=== PATIENT | male | born 1995 | race American Indian/Alaskan Native ===

== ENCOUNTER 2016-07-24 06:57 | Emergency (ER) | payer SELFPAY ==
[2016-07-24 07:24] VITALS: BP 158/101
--- NOTE | 2016-07-24 07:34 | Emergency Department Report ---
HPI - General Chief Complaint: Upper Respiratory Infection Time Seen by Provider: 07/24/16 07:28 - HPI HPI: Patient here complaining of body aches, cough, chills headache nausea and vomiting and diarrhea. Blood pressure is 158/101 and he denies any history of high blood pressure. He said he is having generalized bodyaches at 7 out of 10. Reports been ongoing for the last week and a half and is taking over-the- counter sinus medicine without any relief. Patient has a history of asthma. Denies any nausea vomiting today he said he was having nausea and vomiting yesterday. Denies any diarrhea today. He said he had diarrhea and fever yesterday but none today.Denies chest pain or difficulty breathing. ED Past Medical Hx - Past Medical History Previous Medical History?: Yes Hx Asthma: Yes - Surgical History Past Surgical History?: No - Family History Family history: no significant - Social History Smoking Status: Current Every Day Smoker Substance Use Type: Marijuana - Medications Home Medications: Home Medications Medication Instructions Recorded Confirmed Last Taken Type Albuterol Sulfate [Proventil HFA] 1 - 2 puff IH Q4H PRN #1 hfa.aer.ad 10/30/13 Unknown Rx Azithromycin [Zithromax Z-VERÓNICA] 250 mg PO DAILY #6 tab 07/24/16 Unknown Rx Brompheniramine/Pseudoephed/Dm 10 ml PO QHS PRN #70 ml 07/24/16 Unknown Rx [Bromfed Dm Cough Syrup] Fluticasone [Flonase] 1 spray NS QDAY #1 bottle 07/24/16 Unknown Rx Loratadine [Claritin] 10 mg PO DAILY #15 tablet 07/24/16 Unknown Rx predniSONE [Deltasone] 50 mg PO QDAY #5 tab 07/24/16 Unknown Rx ED Review of Systems ROS: Stated complaint: BODY ACHES, COUGH Other details as noted in HPI Comment: All other systems reviewed and negative Constitutional: chills, fever Eyes: denies: eye pain, eye discharge ENT: congestion. denies: throat pain Respiratory: cough. denies: shortness of breath, SOB with exertion, SOB at rest , stridor, wheezing Cardiovascular: denies: chest pain, palpitations, edema, syncope Gastrointestinal: nausea, vomiting, diarrhea. denies: abdominal pain, constipation Musculoskeletal: arthralgia. denies: back pain Skin: denies: rash Neurological: headache. denies: weakness, numbness, paresthesias, confusion, abnormal gait, vertigo Physical Exam - Physical Exam Vital Signs: Vital Signs 07/24/16 07:21 Temperature 98.4 F Pulse Rate 71 Respiratory 18 Rate Blood Pressure 158/101 O2 Sat by Pulse 97 Oximetry General: This is a 20-year-old male well-nourished well-developed in no acute distress. Physical Exam: Head: Normocephalic atraumatic Mouth: Moist, no pharyngeal exudate or erythema. Uvula is midline and oral airway is patent. No gingival enlargement or dental tenderness. No facial swelling. No peritonsillar abscesses. Neck: Supple, no C-spine tenderness, no tracheal deviation. Nontender to palpate. no adenopathy Ears: Bilateral TMs congested without erythema .bilateral EAC without any redness swelling or drainage Eyes: Bilateral pupils equal and reactive to light, bilateral EOM intact. Bilateral sclera and conjunctiva without injection. Normal accommodation Nose: Mucosa moist, positive congestion no erythema. Positive clear drainage. maxillary and frontal sinus non-tender to palpate. Lungs: Clear to auscultate bilaterally no rhonchi wheezes or rales. Normal work of breathing Abdomen: Soft, nontender to palpate in all quadrants, no guarding or rebound tenderness. Positive bowel sounds in all quadrants. extremity; No CCE. +2 pulses. No neurovascular compromise Cardiovascular: S1-S2, regular rate rhythm. No murmurs. Skin: clean Dry and intact no rash no lesions Psych: Normal mood and behavior ED Course Vital Signs 07/24/16 07:21 Temperature 98.4 F Pulse Rate 71 Respiratory 18 Rate Blood Pressure 158/101 O2 Sat by Pulse 97 Oximetry - Reevaluation(s) Reevaluation #1: 07/24/16 08:11 Patient stable throughout ED course. ED Medical Decision Making - Medical Decision Making ED course:I discussed with patient based on my physical findings he has sinus infection. I discussed diagnosis and treatment plan with patient and he voiced understanding. Pt discharged home with prescription for Zithromax, Flonase, Claritin, prednisone and Bromfed. Critical care attestation.: If time is entered above; I have spent that time in minutes in the direct care of this critically ill patient, excluding procedure time. ED Disposition Clinical Impression: Cough Sinusitis, acute Qualifiers: Sinusitis location: unspecified location Recurrence: not specified as recurrent Qualified Code(s): J01.90 - Acute sinusitis, unspecified Disposition: DISCHARGED TO HOME OR SELFCARE Is pt being admited?: No Does the pt Need Aspirin: No Condition: Stable Instructions: Sinusitis (ED), Acute Cough (ED) Additional Instructions: Please Flush nostrils out with saline nasal flushes. Prescriptions: Brompheniramine/Pseudoephed/Dm [Bromfed Dm Cough Syrup] 10 ml PO QHS PRN #70 ml PRN Reason: Cough Azithromycin [Zithromax Z-VERÓNICA] 250 mg PO DAILY #6 tab Fluticasone [Flonase] 1 spray NS QDAY #1 bottle Loratadine [Claritin] 10 mg PO DAILY #15 tablet predniSONE [Deltasone] 50 mg PO QDAY #5 tab Referrals: [facility] [Outside] - 3-5 Days Forms: Work/School Release Form(ED)
== END 2016-07-24 08:25 | disposition home or self-care (01) ==
LOC: ED 06:57
DX: J01.90 Acute sinusitis, unspecified (principal); R05 Cough; J45.909 Unspecified asthma, uncomplicated; F17.200 Nicotine dependence, unspecified, uncomplicated; F12.90 Cannabis use, unspecified, uncomplicated
CPT/HCPCS: 99282

== ENCOUNTER 2020-11-26 17:09 | Emergency (ER) | payer SELFPAY ==
[2020-11-26] MEDS ORDERED: amLODIPine 5 MG TAB PO ONE (20:38)
[2020-11-26 20:58] LABS: Basophils # (Auto) 0.1 K/mm3 (0.0-0.1); Basophils % (Auto) 0.9 % (0.0-1.8); Eosinophils # (Auto) 0.2 K/mm3 (0.0-0.4); Hematocrit 46.5 % (35.5-45.6); Hemoglobin 15.8 gm/dl (11.8-15.2); Lymphocytes # (Auto) 2.7 K/mm3 (1.2-5.4); Lymphocytes % (Auto) 32.9 % (13.4-35.0); Mean Corpuscular HGB Conc 34 % (32-34); Mean Corpuscular Volume 82 fl (84-94); Monocytes # (Auto) 0.6 K/mm3 (0.0-0.8); Monocytes % (Auto) 7.2 % (0.0-7.3); Platelet Count 256 K/mm3 (140-440); Red Blood Count 5.66 M/mm3 (3.65-5.03); Red Cell Distribution Width 14.3 % (13.2-15.2)
[2020-11-26 21:16] LABS: Alanine Aminotransferase 69 units/L (7-56); Albumin 4.2 g/dL (3.9-5); BUN/Creatinine Ratio 11; Blood Urea Nitrogen 10 mg/dL (9-20); Calcium 9.2 mg/dL (8.4-10.2); Hemolysis Index 10
[2020-11-26] MEDS ORDERED: SODIUM CHLORIDE 0.9% 1000 ML 1,000 ML IV ONE (21:25)
--- NOTE | 2020-11-26 21:56 | Emergency Department Report ---
ED General Adult HPI - General Chief complaint: High BP Stated complaint: HYPERTENSIVE Time Seen by Provider: 11/26/20 19:55 Source: patient Mode of arrival: Ambulatory Limitations: No Limitations - History of Present Illness Initial comments: Patient is a 25-year-old male who presents emergency room with complaints of hypertension. Patient states that yesterday he began having a headache. He states today he decided to check his blood pressure with his stats at home cuff. He states his blood pressure was 180 systolic. He states he has not seen a primary care doctor multiple years. He states high blood pressure is related to family. He has never been diagnosed with high blood pressure in the past. He has never been on medication. He denies any chest pain, shortness of breath, vision changes, vomiting, numbness, weakness, speech disturbance, gait disturbance. PMHx childhood asthma. no allergies to meds - Related Data Previous Rx's Medication Instructions Recorded Last Taken Type Albuterol Sulfate [Proventil HFA] 1 - 2 puff IH Q4H PRN #1 hfa.aer.ad 10/30/13 Unknown Rx Azithromycin [Zithromax Z-VERÓNICA] 250 mg PO DAILY #6 tab 07/24/16 Unknown Rx Brompheniramine/Pseudoephed/Dm 10 ml PO QHS PRN #70 ml 07/24/16 Unknown Rx [Bromfed Dm Cough Syrup] Fluticasone [Flonase] 1 spray NS QDAY #1 bottle 07/24/16 Unknown Rx Loratadine (Nf) [Claritin (Nf)] 10 mg PO DAILY #15 tablet 07/24/16 Unknown Rx predniSONE [Deltasone] 50 mg PO QDAY #5 tab 07/24/16 Unknown Rx amLODIPine 5 mg PO DAILY #30 tab 11/26/20 Unknown Rx hydroCHLOROthiazide [HCTZ] 12.5 mg PO QDAY #30 capsule 11/26/20 Unknown Rx Allergies Allergy/AdvReac Type Severity Reaction Status Date / Time No Known Allergies Allergy Verified 10/30/13 00:33 ED Review of Systems ROS: Stated complaint: HYPERTENSIVE Other details as noted in HPI Comment: All other systems reviewed and negative ED Past Medical Hx - Past Medical History Hx Asthma: Yes - Surgical History Past Surgical History?: No - Social History Smoking Status: Current Every Day Smoker Substance Use Type: Marijuana - Medications Home Medications: Home Medications Medication Instructions Recorded Confirmed Last Taken Type Albuterol Sulfate [Proventil HFA] 1 - 2 puff IH Q4H PRN #1 hfa.aer.ad 10/30/13 Unknown Rx Azithromycin [Zithromax Z-VERÓNICA] 250 mg PO DAILY #6 tab 07/24/16 Unknown Rx Brompheniramine/Pseudoephed/Dm 10 ml PO QHS PRN #70 ml 07/24/16 Unknown Rx [Bromfed Dm Cough Syrup] Fluticasone [Flonase] 1 spray NS QDAY #1 bottle 07/24/16 Unknown Rx Loratadine (Nf) [Claritin (Nf)] 10 mg PO DAILY #15 tablet 07/24/16 Unknown Rx predniSONE [Deltasone] 50 mg PO QDAY #5 tab 07/24/16 Unknown Rx amLODIPine 5 mg PO DAILY #30 tab 11/26/20 Unknown Rx hydroCHLOROthiazide [HCTZ] 12.5 mg PO QDAY #30 capsule 11/26/20 Unknown Rx ED Physical Exam - General Limitations: No Limitations General appearance: alert, in no apparent distress - Head Head exam: Present: atraumatic, normocephalic - Eye Eye exam: Present: normal appearance - ENT ENT exam: Present: mucous membranes moist - Respiratory Respiratory exam: Present: normal lung sounds bilaterally. Absent: respiratory distress, wheezes, rales, rhonchi, stridor, chest wall tenderness, accessory muscle use, decreased breath sounds, prolonged expiratory - Cardiovascular Cardiovascular Exam: Present: regular rate, normal rhythm, normal heart sounds. Absent: systolic murmur, diastolic murmur, rubs, gallop - Extremities Exam Extremities exam: Absent: pedal edema - Neurological Exam Neurological exam: Present: alert, oriented X3, CN II-XII intact, normal gait. Absent: motor sensory deficit - Skin Skin exam: Present: warm, dry, intact ED Course Vital Signs 11/26/20 11/26/20 11/26/20 18:20 21:09 21:10 Temperature 98.9 F 98.7 F Pulse Rate 74 82 77 Respiratory 18 18 Rate Blood Pressure 179/115 170/102 Blood Pressure 170/102 [Left] O2 Sat by Pulse 99 97 Oximetry 11/26/20 22:19 Temperature Pulse Rate 82 Respiratory 17 Rate Blood Pressure Blood Pressure 161/107 [Left] O2 Sat by Pulse 98 Oximetry ED Medical Decision Making - Lab Data Result diagrams: 11/26/20 20:40 11/26/20 20:40 Labs 11/26/20 11/26/20 20:40 20:40 WBC 8.1 RBC 5.66 H Hgb 15.8 H Hct 46.5 H MCV 82 L MCH 28 MCHC 34 RDW 14.3 Plt Count 256 Lymph % (Auto) 32.9 [place] % (Auto) 7.2 Eos % (Auto) 3.0 Baso % (Auto) 0.9 Lymph # (Auto) 2.7 [place] # (Auto) 0.6 Eos # (Auto) 0.2 Baso # (Auto) 0.1 Seg Neutrophils % 56.0 Seg Neutrophils # 4.6 Sodium 132 L Potassium 3.6 Chloride 94.5 L Carbon Dioxide 25 Anion Gap 16 BUN 10 Creatinine 0.9 Estimated GFR > 60 BUN/Creatinine Ratio 11 Glucose 127 H Calcium 9.2 Magnesium 1.80 Total Bilirubin 0.30 AST 33 ALT 69 H Alkaline Phosphatase 83 Total Creatine Kinase 652 H Troponin T < 0.010 Total Protein 7.8 Albumin 4.2 Albumin/Globulin Ratio 1.2 - EKG Data EKG shows normal: sinus rhythm, axis, intervals, QRS complexes, ST-T waves Rate: normal - Medical Decision Making Patient is a 25-year-old male who presents emergency room with complaints of hypertension. Patient states that yesterday he began having a headache. He states today he decided to check his blood pressure with his stats at home cuff. He states his blood pressure was 180 systolic. He states he has not seen a primary care doctor multiple years. He states high blood pressure is related to family. He has never been diagnosed with high blood pressure in the past. He has never been on medication. He denies any chest pain, shortness of breath, vision changes, vomiting, numbness, weakness, speech disturbance, gait disturbance. PMHx childhood asthma. no allergies to meds. Vitals with elevated blood pressure. No abnormality on physical examination as documented chart, no neuro deficits. Labs with mild dehydration and mildly elevated CK, given 1 L normal saline. EKG is within normal limits. Patient given amlodipine on the emergency department with improvement of blood pressure, patient is currently asymptomatic. Patient given prescription for amlodipine and hydrochlorothiazide. Discussed lifestyle modifications and the importance of primary care follow-up. Advised patient Please take medication as prescribed. Eat a low-sodium/low salt diet. Incorporate 30-60 minutes daily exercise. Keep a blood pressure log and take this to the primary care doctor. Follow-up with primary care doctor. Return to emergency room for new or worsening symptoms. Critical care attestation.: If time is entered above; I have spent that time in minutes in the direct care of this critically ill patient, excluding procedure time. ED Disposition Clinical Impression: Hypertensive urgency Disposition: DC-01 TO HOME OR SELFCARE Is pt being admited?: No Does the pt Need Aspirin: No Condition: Stable Instructions: Hypertension, Adult, [id number], Managing Your Hypertension Additional Instructions: Please take medication as prescribed. Eat a low-sodium/low salt diet. Inco rporate 30-60 minutes daily exercise. Keep a blood pressure log and take this to the primary care doctor. Follow-up with primary care doctor. Return to emergency room for new or worsening symptoms. Prescriptions: amLODIPine 5 mg PO DAILY #30 tab hydroCHLOROthiazide [HCTZ] 12.5 mg PO QDAY #30 capsule Referrals: MARIANA READ MD [Staff Physician] - 2-3 Days [facility] [place] [Provider Group] - 2-3 Days Forms: Work/School Release Form(ED) Time of Disposition: 22:30 Print Language: [place]
[2020-11-26 22:22] VITALS: BP 161/107
--- NOTE | 2020-11-27 09:58 | Electrocardiograph Report ---
[facility] Test Date: 2020-11-26 Test Time: 22:01:58 Pat Name: JESSICA PATEL Department: Room: Gender: M Expander: BARBIE : 1995 Requested By: JOHNNY PASTOR Order Number: [id number] Reading MD: Demond Aguiar Measurements Intervals [place] Rate: 82 P: 57 ME: 133 QRS: 16 QRSD: 91 T: 14 QT: 375 QTc: 437 Interpretive Statements Sinus rhythm No previous ECG available for comparison Electronically Signed On 11-27-2020 9:58:15 EDT by Demond Aguiar
== END 2020-11-26 23:10 | disposition home or self-care (01) ==
LOC: ED 17:09
DX: I16.0 Hypertensive urgency (principal); R51.9 Headache, unspecified; J45.909 Unspecified asthma, uncomplicated; F17.200 Nicotine dependence, unspecified, uncomplicated; F12.90 Cannabis use, unspecified, uncomplicated; Z79.899 Other long term (current) drug therapy
CPT/HCPCS: 36415; 80053; 82550; 83735; 84484; 85025; 93005; 96360; 99283; J7030